=== PATIENT | male | born 1940 | race Caucasian/White ===

== ENCOUNTER 2019-09-28 08:18 | Emergency (ER) | payer MEDICARE ==
[~2019-09-28] VITALS: Ht 175.3 cm; Wt 88.9 kg
[~2019-09-28 08:18] MED LIST: AMLO10TA8 PO; MOME17SP INH; ROSU10TA2 PO; TERA5CAP3 PO
[2019-09-28 08:20] VITALS: BP 147/78
[2019-09-28 08:40] LABS: BASOPHILS # (AUTO) 0.02 x10^3/uL (0-0.1); BASOPHILS % (AUTO) 1 % (0-1); EOSINOPHILS # (AUTO) 0.08 x10^3/uL (0-0.4); EOSINOPHILS % (AUTO) 2 % (1-7); LYMPHOCYTES # (AUTO) 0.56 x10^3/uL (1-3.4); LYMPHOCYTES % (AUTO) 16 % (22-44); MD NO; MEAN CORPUSCULAR HEMOGLOBIN 32.9 pg (27.5-34.5); MEAN CORPUSCULAR HGB CONC 34.3 g/dL (33.2-36.2); MEAN CORPUSCULAR VOLUME 95.9 fL (81-97); MEAN PLATELET VOLUME 7.4 fL (7.4-10.4); MONOCYTES # (AUTO) 0.53 x10^3/uL (0.2-0.8); MONOCYTES % (AUTO) 15 % (2-9); NEUTROPHILS % (AUTO) 66 % (42-75); PLATELET COUNT 235 x10^3/uL (130-400); RED BLOOD COUNT 4.37 x10^6/uL (4.38-5.82); RED CELL DISTRIBUTION WIDTH 13.8 % (9.4-14.8)
[2019-09-28 08:49] LABS: ALBUMIN 3.6 g/dL (3.4-5.0); ANION GAP 9 mmol/L (5-15); CALCIUM 8.5 mg/dL (8.5-10.1); CHLORIDE 106 mmol/L (98-107); CREATININE 0.83 mg/dL (0.7-1.3)
--- NOTE | 2019-09-28 08:59 | NUR ---
OFFSET MACHINE OPERATOR: PT TO ROOM FROM [facility], AMBULATORY STEADY GAIT.
--- NOTE | 2019-09-28 09:39 | NUR ---
PT GIVEN DC INSTRUCTIONS AND SCRIPT, EDUCATED REGARDING RX FOR TESSALON AND ALBUTEROL. PT A&O, RESPS EVEN AND UNLABORED, PT MAINTAINING SPO2 >95% ON ROOM AIR. PT AMB TO DC DESK WITH STEADY GAIT, ACCOMPANIED BY . KERRY AT DC.
== END 2019-09-28 09:40 | disposition home or self-care (01) ==
LOC: ED 09:33
DX: J20.9 Acute bronchitis, unspecified (principal); I10 Essential (primary) hypertension; E78.5 Hyperlipidemia, unspecified
CPT/HCPCS: 36415; 71046; 80048; 82040; 85025; 99284